=== PATIENT | male | born 1990 | race Caucasian/White ===

== ENCOUNTER 2017-07-28 07:11 | Emergency (ER) | payer BC ==
[2017-07-28 07:30] VITALS: BP 143/78
--- NOTE | 2017-07-28 08:10 | UC ---
Throat Pain/Nasal Saleem HPI - HPI Summary HPI Summary: COUGH X 2.5 WEEKS. SEEMED TO BE BETTER ON MONDAY BUT RETURNED YESTERDAY ALONG WITH LOWER RT RIB PAIN. PAIN IS DESCRIBED SHARP 5/10 CONSTANT PAIN BUT BECOMES 9/10 ONLY WHEN COUGHING OR TAKING DEEP BREATHES AFTER COUGHING. - History of Current Complaint Chief Complaint: UCRespiratory Stated Complaint: COUGH,RIB PAIN Time Seen by Provider: 07/28/17 07:44 Hx Obtained From: Patient Onset/Duration: Gradual Onset, Lasting Weeks, Still Present, Worse Since - YESTERDAY Severity: Moderate Cough: Nonproductive Associated Signs & Symptoms: Negative: Dysphagia, FB Sensation, Drooling, Wheezing, Hoarseness, Sinus Discomfort, Nasal Discharge, Fever, Vomiting, Rash - Allergies/Home Medications Allergies/Adverse Reactions: Allergies Allergy/AdvReac Type Severity Reaction Status Date / Time No Known Allergies Allergy Verified 07/28/17 07:22 Home Medications: Home Medications Dextromethorphan-Phenylephrine [Day Time Multi-Symptom Co 10-5-325 mg] 1 cap PO QID PRN 07/28/17 [History Confirmed 07/28/17] PMH/Surg Hx/FS Hx/Imm Hx Previously Healthy: Yes Cardiovascular History: Other - NEG HTN Other Cardiovascular History: NEG HTN Respiratory History: Other - NEG ASTHMA Other Respiratory History: NEG ASTHMA - Surgical History Surgical History: None - Family History Known Family History: Positive: Cardiac Disease, Hypertension, Diabetes - Social History Occupation: Employed Full-time Lives: With Family Alcohol Use: None Substance Use Type: None Smoking Status (MU): Never Smoked Tobacco Review of Systems Constitutional: Negative Skin: Negative Eyes: Negative ENT: Negative Respiratory: Cough Cardiovascular: Chest Pain - RT RIB PAIN Gastrointestinal: Negative Genitourinary: Negative Musculoskeletal: Other: - RT RIB PAIN Neurological: Negative All Other Systems Reviewed And Are Negative: Yes Physical Exam Triage Information Reviewed: Yes Appearance: Well-Appearing, No Pain Distress, Well-Nourished Vital Signs: Initial Vital Signs Temp 98.2 F 07/28/17 07:25 Pulse 89 07/28/17 07:25 Resp 16 07/28/17 07:25 BP 143/78 07/28/17 07:25 Pulse Ox 98 07/28/17 07:25 Vital Signs Reviewed: Yes Eyes: Positive: Conjunctiva Clear. Negative: Discharge ENT: Positive: Hearing grossly normal, Pharynx normal, TMs normal, Other: - PALE BOGGY NASAL MUCOSA, PERIORBITIAL CONGESTION. Negative: Nasal congestion, Nasal drainage, Tonsillar swelling, Tonsillar exudate, Trismus, Muffled/hoarse voice Neck: Positive: Supple, Nontender, No Lymphadenopathy Respiratory: Positive: Lungs clear, Normal breath sounds, No respiratory distress, No accessory muscle use Cardiovascular: Positive: RRR, No Murmur Musculoskeletal: Positive: Strength Intact, ROM Intact, No Edema, Other: - TENDER OVER RIBS 7-10 ON THE RIGHT Neurological: Positive: Alert, Muscle Tone Normal Psychological: Positive: Age Appropriate Behavior Skin Exam: Normal Skin: Positive: Other - NO BRUISING Throat Pain/Nasal Course/Dx - Differential Dx/Diagnosis Differential Diagnosis/HQI/PQRI: Sinusitis, URI, Other - PNA, BRONCHITIS Provider Diagnoses: BRONCHOSPASM, COUGH, RIB PAIN, ALLERGIES Discharge - Discharge Plan Condition: Stable Disposition: HOME Prescriptions: Albuterol HFA INHALER* [Ventolin HFA Inhaler*] 2 puff INH Q4H PRN #1 mdi PRN Reason: Sob/Wheezing Benzonatate CAP* [Tessalon 100 MG CAP*] 100 mg PO TID PRN #30 cap PRN Reason: Cough Naproxen TAB* [Naprosyn 250 mg TAB*] 500 mg PO BID PRN #14 tab PRN Reason: Pain guaiFENesin ER TAB [Mucinex*] 600 mg PO BID PRN #1 box PRN Reason: Cough traMADol TAB* [Ultram*] 50 mg PO Q8H PRN #14 tab MDD 3 TABS PRN Reason: Pain Patient Education Materials: Allergies (ED), Bronchospasm (ED), Rib Contusion ( ED) Forms: *Work Release Referrals: Catarina CRUZ ANALYTICAL MANAGER,Donya [Primary Care Provider] - (FOLLOW UP IN 3-5 DAYS) Additional Instructions: INHALED BRONCHODILATORS: You have received a prescription for an inhaled bronchodilator -- a medication which stimulates the airways in the lung to dilate. This improves the flow of air in asthma, bronchitis, and emphysema. These medicines have some similarity to adrenaline, and can cause similar side effects: shakiness, racing heart, and a sense of nervousness. These side effects decrease with time. Contact your doctor if these side effects are severe. Do not over-use the medicine. Too-frequent use of the inhaler may make it ineffective. Call your doctor if the inhaler is not controlling your symptoms at the prescribed doses. EXPECTORANT MEDICATION: WE SENT IN A SCRIPT FOR MUCINEX SO THAT IT IS EASIER FOR YOU TO PICK THE RIGHT MED AT THE PHARMACY. HOWEVER, YOU CAN ALSO GO TO THE [employer] [employer] [facility] AND BUY PLAIN GUAIFENESIN WITHOU BINDERS OR FILLERS. An expectorant medicine has been prescribed. This type of drug makes mucous thinner, helping the sinuses, nose, and bronchial tubes to remain free of pus and mucous. Expectorants make a cough less severe and more comfortable, and help infected sinuses drain. In general, antihistamines defeat the purpose of the expectorant by making mucous thicker. They should be avoided unless specifically recommended by your physician. TESSALON PERLES: You have received a prescription for Tessalon Perles (benzonatate). This is a non-narcotic medicine for relief of cough. It usually works in about 15- 20 minutes and lasts around four hours. Tessalon Perles should be swallowed. They should not be chewed or dissolved in the mouth (this can produce temporary numbing of the mouth and choking can occur). If you develop any adverse effects such as wheezing, shortness of breath, hives, rash, itching, or lightheadedness, please return at once. ULTRAM (tramadol hydrochloride): Ultram is an excellent drug for pain relief. It is not a narcotic, but it works in a similar way. Ultram can take up to two hours for full effect. Although not addicting, Ultram is best avoided in patients with a history of drug abuse. Ultram should not be used with alcohol, sleeping pills, or narcotics. If you're prone to seizures, Ultram can make you more likely to have a seizure. Ultram can be hazardous when combined with MAO-inhibitor antidepressants (such as Nardil or Parnate). Be sure your doctor is aware of all medicines you are taking. Persons with severe liver or kidney disease should increase the time between doses of Ultram. Discuss this with your doctor if you're uncertain. Side effects of Ultram can include dizziness, nausea, constipation, sleepiness, and itching. (These side effects are also seen with narcotic pain medicines.) Please call your doctor if you have other disturbing effects. YOUR BLOOD PRESSURE WAS ELEVATED AT THIS VISIT. PLEASE FOLLOW UP WTH YOUR PCP FOR FURTHER EVALUATION.
== END 2017-07-28 08:05 | disposition home or self-care (01) ==
LOC: UCEAST 07:11
DX: J98.01 Acute bronchospasm (principal); R05 Cough; R07.81 Pleurodynia; T78.40XA Allergy, unspecified, initial encounter; X58.XXXA Exposure to other specified factors, initial encounter; Y92.9 Unspecified place or not applicable
CPT/HCPCS: 99212; G0463

== ENCOUNTER 2017-07-31 10:58 | Emergency (ER) | payer BC ==
--- NOTE | 2017-07-31 11:56 | RAD ---
Indication: RIGHT 8-11 anterior rib pain following coughing. Comparison: No relevant prior exams available on the [facility] PACS for comparison. Technique: PA chest and three-view dedicated RIGHT rib views. Report: Nondisplaced RIGHT eighth rib fracture posterior lateral. Negative for pleural effusion or pneumothorax. Low lung volumes with minimal bibasilar subsegmental atelectasis. Accounting for hypoventilation the heart, pulmonary vasculature, and mediastinal contours are unremarkable. IMPRESSION: Nondisplaced RIGHT eighth rib fracture. Negative for pleural effusion or pneumothorax. Low lung volumes with minimal subsegmental atelectasis.
--- NOTE | 2017-07-31 12:27 | ED ---
Respiratory - HPI Summary HPI Summary: 26 male presents to ED with complaints of right sided rib pain that began ~1-2 weeks ago and worsened this morning after coughing. States he felt a pop. Has been suffering from a cough for the past 3 weeks. Patient was seen by a few days ago and given pain medication and symptomatic cough medication. Was diagnosed with bronchitis and rib pain. Patient has had little relief from cough. States he also began Mucinex. Feels as though it is breaking up but is having a hard time to expel due to rib pain. Admits to some trauma at work a few weeks ago. told at that he may have dislocated a rib but did not have any x-rays. Denies known bruising or deformity. Denies fever/chills, hemopytsis , chest pain or difficulty breathing. Rib pain worsens when taking deep breaths , however he is able. Also hurts with laughing and coughing. Denies any other complaints at this time. No PMHx. Currently taking tessalon pearls, tramadol ( no relief), albuterol inhaler and naproxen which he was given at . - History of Current Complaint Chief Complaint: EDChestWallPain Stated Complaint: RIB/BACK PAIN Time Seen by Provider: 07/31/17 11:14 Hx Obtained From: Patient Onset/Duration: Sudden Onset, Lasting Weeks, Still Present, Worse Since - this morning Initial Severity: Moderate Current Severity: Severe Pain Intensity: 8 - R rib pain Character: Cough (Productive) - at times, Cough (Nonproductive) Sputum Amount: Scant Sputum Color: Clear, Yellow Aggravating Factor(s): URI, Movement, Deep Breaths, Recumbent Position Alleviating Factor(s): MDI (Frequency Of Use), OTC Medications - cough medication, Upright Position, Rest - Allergy/Home Medications Allergies/Adverse Reactions: Allergies Allergy/AdvReac Type Severity Reaction Status Date / Time No Known Allergies Allergy Verified 07/28/17 07:22 PMH/Surg Hx/FS Hx/Imm Hx Endocrine/Hematology History: Denies: Hx Diabetes, Hx Thyroid Disease Cardiovascular History: Denies: Hx Hypertension Respiratory History: Denies: Hx Asthma, Hx Chronic Obstructive Pulmonary Disease (COPD) GI History: Denies: Hx Ulcer - Surgical History Surgery Procedure, Year, and Place: n/a - Immunization History Immunizations Up to Date: Yes Infectious Disease History: No Infectious Disease History: Denies: Hx Clostridium Difficile, Hx Hepatitis, Hx Human Immunodeficiency Virus (HIV), Hx of Known/Suspected MRSA, Hx Shingles, Hx Tuberculosis, Hx Known/ Suspected VRE, Hx Known/Suspected VRSA, History Other Infectious Disease, Traveled Outside the [place] in Last 30 Days - Family History Known Family History: Positive: Cardiac Disease, Hypertension, Diabetes - Social History Alcohol Use: None Substance Use Type: Reports: None Smoking Status (MU): Never Smoked Tobacco Review of Systems Constitutional: Negative Eyes: Negative ENT: Negative Positive: Other - right rib pain Positive: Cough Gastrointestinal: Negative Positive: Other - right rib pain Skin: Negative Neurological: Negative All Other Systems Reviewed And Are Negative: Yes Physical Exam Triage Information Reviewed: Yes Vital Signs On Initial Exam: Initial Vitals Temp Pulse Resp BP Pulse Ox 96.8 F 75 18 143/72 99 07/31/17 11:03 07/31/17 11:03 07/31/17 11:03 07/31/17 11:03 07/31/17 11:03 not hypoxic, afebrile Vital Signs Reviewed: Yes Appearance: Positive: Well-Appearing, No Pain Distress, Well-Nourished Skin: Positive: Warm, Skin Color Reflects Adequate Perfusion, Dry. Negative: Cold, Cyanosis @, Pale, [place] Head/Face: Positive: Normal Head/Face Inspection Eyes: Positive: EOMI, CARL, Conjunctiva Clear ENT: Positive: Hearing grossly normal, Pharynx normal, TMs normal Dental: Negative: Cervical Lymphadenopathy Neck: Positive: Supple, Nontender, No Lymphadenopathy Respiratory/Lung Sounds: Positive: Clear to Auscultation, Breath Sounds Present , Decreased Breath Sounds - difficult to auscultate due to pain with deep breaths. Negative: Rales, Rhonchi, Wheezes Cardiovascular: Positive: Normal, RRR, Pulses are Symmetrical in both Upper and Lower Extremities. Negative: Murmur, Rub Abdomen Description: Positive: Nontender, No Organomegaly Bowel Sounds: Positive: Present Musculoskeletal: Positive: Normal, Strength/ROM Intact, Pain @ - right rib around 7-10 ribs, anteriorly with palpation, Other - no obvious deformity or signs or trauma, no ecchymosis. Negative: Edema Left, Edema Right Neurological: Positive: Normal, Sensory/Motor Intact - sensation intact, Alert, Oriented to Person Place, Time, CN Intact II-III, Reflexes Intact, NV Bundle Intact Distally, Normal Gait Psychiatric: Positive: Affect/Mood Appropriate - [place] Coma Scale Coma Scale Total: 15 Diagnostics - Vital Signs Vital Signs Temp Pulse Resp BP Pulse Ox 07/31/17 11:19 98.5 F 80 18 147/73 100 07/31/17 11:03 96.8 F 75 18 143/72 99 - Laboratory Lab Statement: Any lab studies that have been ordered have been reviewed, and results considered in the medical decision making process. - Radiology chest/ribs Xray Interpretation: Positive (See Comments) - Nondisplaced RIGHT eighth rib fracture. Negative for pleural effusion or pneumothorax. Low lung volumes with minimal subsegmental atelectasis. Radiology Interpretation Completed By: Radiologist Disposition - Course Course Of Treatment: given pain management while in ED. will give z pack due to length of symptoms with cough being >3 weeks and with rib fracture. x-ray obtained and has 8th nondisplaced rib fracture. No other concern for pneumonia. does have some atelectasis and low lung volume due to pain. spirometer given. use pillow for support. refrain physical activity and heavy lifting. no difficulty breathing or signs of pneumothorax. given pain management and antibiotic. continue meds already prescribed as directed (inhaler, naproxen, tessalon pearls). apply ice/heat to area follow up with pcp. given ortho number for complication if occur. aware of worsening signs and symptoms. - Differential Dx - Cardiopulmonary Differential Diagnoses - Cardiopulmonary: Lower Resp Infection, Pneumothorax, Pulmonary Edema, Other - URI, rib fracture, rib pain - Diagnoses Provider Diagnoses: Right rib fracture, Bronchitis Discharge - Discharge Plan Condition: Stable Disposition: HOME Prescriptions: Acetaminop/Codeine 30 MG TAB* [Tylenol/Codeine 30 MG TAB*] 1 tab PO Q6H PRN #20 tab MDD 2 PRN Reason: Pain Azithromycin TAB* [Zithromax TAB (Z-EMMANUEL) 250 mg #6 tabs] 2 tab PO .TODAY, THEN 1 DAILY #1 emmanuel Patient Education Materials: Rib Fracture (ED), Acute Bronchitis (ED) Forms: *Work Release Referrals: Nico Gerber MD [Medical Doctor] - Catarina REILLYPDonya [Primary Care Provider] - Additional Instructions: Continue taking Tessalon pearls, naproxen, and inhaler as directed. Discontinue tramadol and mucinex. Start antibiotic and tylenol/codeine as directed. You can not drive while taking tylenol/codeine as this is a narcotic. Drink plenty of fluids and rest. Use pillow when laying/sleeping. Use incentive spirometer as instructed to prevent pneumonia. Refrain form strenuous physical activity and lifting. Follow up with PCP, ortho if needed as discussed.
[2017-07-31] MEDS ORDERED: Acetaminop/Codeine 30 MG TAB* 1 TAB (300 MG/30 MG) PO ONE (12:41)
[2017-07-31 13:23] VITALS: BP 131/77
== END 2017-07-31 13:01 | disposition home or self-care (01) ==
LOC: ED 10:58
DX: R07.81 Pleurodynia (principal); S22.31XA Fracture of one rib, right side, initial encounter for closed fracture; J40 Bronchitis, not specified as acute or chronic; Y93.9 Activity, unspecified; X58.XXXA Exposure to other specified factors, initial encounter; Y92.9 Unspecified place or not applicable; Y99.9 Unspecified external cause status
CPT/HCPCS: 99282; A9270-GY

== ENCOUNTER 2018-01-08 11:05 | Emergency (ER) | payer SELFPAY ==
[2018-01-08 11:41] VITALS: BP 150/85
--- NOTE | 2018-01-08 11:46 | UC ---
Lower Extremity/Ankle HPI - HPI Summary HPI Summary: 27 YO MALE WITH LEFT ANKLE INJURY AT WORK FELT A CRACK OCCURRED THIS AM PAINFUL WT BEARING - History of Current Complaint Chief Complaint: UCLowerExtremity Stated Complaint: ANKLE INJURY Time Seen by Provider: 01/08/18 11:45 Hx Obtained From: Patient Onset/Duration: Sudden Onset Severity Initially: Moderate Severity Currently: Moderate Pain Intensity: 5 Pain Scale Used: 0-10 Numeric Aggravating Factor(s): Standing, Ambulation Alleviating Factor(s): Rest, Elevation Able to Bear Weight: Yes Related History: Occupational Injury - Allergies/Home Medications Allergies/Adverse Reactions: Allergies Allergy/AdvReac Type Severity Reaction Status Date / Time No Known Allergies Allergy Verified 01/08/18 11:41 Home Medications: Home Medications Acetaminophen TAB* [Tylenol TAB*] 1,000 mg PO DAILY PRN 01/08/18 [History Confirmed 01/08/18] PMH/Surg Hx/FS Hx/Imm Hx Previously Healthy: Yes - Surgical History Surgical History: None Surgery Procedure, Year, and Place: n/a - Family History Known Family History: Positive: Cardiac Disease, Hypertension, Diabetes - Social History Alcohol Use: None Substance Use Type: None Smoking Status (MU): Never Smoked Tobacco Review of Systems Constitutional: Negative Skin: Negative Eyes: Negative ENT: Negative Respiratory: Negative Cardiovascular: Negative Gastrointestinal: Negative Genitourinary: Negative Motor: Negative Neurovascular: Negative Musculoskeletal: Arthralgia Neurological: Negative Psychological: Negative Is Patient Immunocompromised?: No All Other Systems Reviewed And Are Negative: Yes Physical Exam Triage Information Reviewed: Yes Appearance: Well-Appearing, No Pain Distress, Well-Nourished Vital Signs: Initial Vital Signs Temp 98.0 F 01/08/18 11:37 Pulse 87 01/08/18 11:37 Resp 14 01/08/18 11:37 BP 150/85 01/08/18 11:37 Pulse Ox 99 01/08/18 11:37 Eyes: Positive: Conjunctiva Clear ENT: Positive: Pharynx normal, Uvula midline. Negative: Nasal congestion, Nasal drainage, Tonsillar swelling, Tonsillar exudate Neck: Positive: Supple, Nontender Respiratory: Positive: Lungs clear, Normal breath sounds Cardiovascular: Positive: RRR, No Murmur Musculoskeletal: Positive: Other: - SEE IMAGE Neurological: Positive: Alert Psychological Exam: Normal Skin Exam: Normal Diagnostics - Radiology No standard instances Xray Interpretation: No Acute Changes Radiology Interpretation Completed By: Radiologist Lower Extremity Course/Dx - Differential Dx/Diagnosis Provider Diagnoses: left ankle sprain Discharge - Discharge Plan Condition: Stable Disposition: HOME Patient Education Materials: Ankle Sprain (ED) Forms: *Work Release Referrals: Catarina REILLYP,Donya [Primary Care Provider] - Additional Instructions: rest elevate ice recheck this weekend if not better CAM boot Images Feet (Multiple View): 1 - TENDER/SWOLLEN
[2018-01-08] MEDS ORDERED: Ibuprofen TAB* 600 MG PO ONE (11:50)
--- NOTE | 2018-01-08 12:23 | RAD ---
HISTORY: Left ankle pain, inversion injury COMPARISONS: None VIEWS: 3, Frontal, lateral, and oblique views of the left ankle FINDINGS: BONE DENSITY: Normal. BONES: There is no displaced fracture. There are calcaneal enthesophytes.. JOINTS: There is no arthropathy. ALIGNMENT: There is no dislocation. SOFT TISSUES: Unremarkable. OTHER FINDINGS: None. IMPRESSION: NO ACUTE OSSEOUS INJURY. IF SYMPTOMS PERSIST, RECOMMEND REPEAT IMAGING.
== END 2018-01-08 12:56 | disposition home or self-care (01) ==
LOC: UCEAST 11:05
DX: S93.402A Sprain of unspecified ligament of left ankle, initial encounter (principal); X58.XXXA Exposure to other specified factors, initial encounter; Y93.9 Activity, unspecified; Y92.9 Unspecified place or not applicable; Y99.0 Civilian activity done for income or pay
CPT/HCPCS: 99212; A9270-GY; G0463